=== PATIENT | male | born 1980 | race Caucasian/White ===

== ENCOUNTER → 2017-09-16 15:36 | Outpatient (REF) | payer OTHER, MEDICAID, SELFPAY | LOC: LAB 15:36 | PROVIDERS: Visit Provider Internal Medicine | DX: J15.211 Pneumonia due to Methicillin susceptible Staphylococcus aureus (principal); F15.93 Other stimulant use, unspecified with withdrawal; F95.2 Tourette's disorder | CPT/HCPCS: 87116 ==

== ENCOUNTER → 2023-09-16 13:51 | Outpatient (CLI) | payer OTHER, SELFPAY ==
--- NOTE | 2023-09-16 14:00 | DI.RAD.S_ITS ---
PROCEDURE: XR HIP W PEL IF DONE [place] MIN 4V INDICATIONS: ARTHRITIS EVAL TECHNIQUE: AP pelvis with lateral view(s) of the both hip(s). COMPARISON: None. FINDINGS: Bones: Mild bilateral hip arthrosis. Slight deformity at the pubic symphysis without diastasis. No acute displaced fracture or dislocation. Soft tissues: Pelvic calcifications likely phleboliths. IMPRESSION: Mild bilateral hip arthrosis. Age-indeterminate deformity of the pubic symphysis without diastasis. If there is high concern for further derangement, consider MRI evaluation. Dictated by: Francesco Kinney M.D. on 09/16/2023 at 16:57 Approved by: Francesco Kinney M.D. on 09/16/2023 at 16:59
--- NOTE | 2023-09-16 14:00 | DI.RAD.S_ITS ---
PROCEDURE: XR LUMBAR SPINE 2-3V INDICATIONS: ARTHRITIS EVAL TECHNIQUE: 3 views of the lumbar spine were acquired. COMPARISON: None. FINDINGS: Bones: 5 [id number] vertebrae are present. There is normal bony alignment. No vertebral body compression fractures. No suspicious bony lesions. Mild disc space narrowing and hypertrophic facet joints noted in the lower lumbar spine Soft tissues: Overlying bowel gas pattern is normal. No suspicious soft tissue calcifications. 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 on 09/16/2023 at 18:17
--- NOTE | 2023-09-16 14:00 | DI.RAD.S_ITS ---
PROCEDURE: XR THORACIC SPINE 2V INDICATIONS: ARTHRITIS EVAL TECHNIQUE: 3 views of the thoracic spine were acquired. COMPARISON: None. FINDINGS: Bones: No fractures or dislocations. No suspicious bony lesions. 12 pairs of ribs are noted, and appear intact where visualized. Soft tissues: No paravertebral stripe thickening. IMPRESSION: No acute bony abnormality. Approved by: Kanu Wesley M.D. on 09/16/2023 at 18:16
--- NOTE | 2023-09-16 14:00 | DI.RAD.S_ITS ---
PROCEDURE: XR KNEE LT 3V INDICATIONS: ARTHRITIS EVAL TECHNIQUE: 3 views of the knee were acquired. COMPARISON: None. FINDINGS: Bones: Possible postsurgical changes of ACL replacement. There are mild degenerative changes particularly in the medial compartment. No acute displaced fracture or dislocation. Soft tissues: A linear hyperdensity projects lateral to the distal femoral shaft. Patellar enthesopathy. Possible small intra-articular bone fragment. Possible small effusion IMPRESSION: Postsurgical changes. Mild osteoarthritis particularly in the medial compartment. Possible small intra-articular bone fragment. A possible linear metallic body is seen lateral to the distal femoral shaft. If there is high concern for further derangement, consider MRI evaluation. Dictated by: Francesco Kinney M.D. on 09/16/2023 at 16:59 Approved by: Francesco Kinney M.D. on 09/16/2023 at 17:00
--- NOTE | 2023-09-16 14:01 | DI.RAD.S_ITS ---
PROCEDURE: XR SHOULDER RT MIN 2V INDICATIONS: ARTHRITIS EVAL TECHNIQUE: 3 views of the shoulder were acquired. COMPARISON: [facility], , SHOULDER MINIMUM 2VIEW RIGHT, 06/24/2017, 12:18. FINDINGS: Bones: No fractures or dislocations. No suspicious bony lesions. Visualized ribs appear intact. Moderate joint space narrowing and inferior marginal osteophyte Soft tissues: No suspicious soft tissue calcifications. IMPRESSION: Moderate glenohumeral osteoarthritis Approved by: Kanu Wesley M.D. on 09/16/2023 at 18:16
--- NOTE | 2023-09-16 14:01 | DI.RAD.S_ITS ---
PROCEDURE: XR KNEE RT 3V INDICATIONS: ARTHRITIS EVAL TECHNIQUE: 3 views of the knee were acquired. COMPARISON: None. FINDINGS: Bones: [id number]-up-[id number] degenerative changes, particularly in the patellofemoral and medial compartments. This is worse than the contralateral side. Patellar enthesopathy. Sequelae of a ACL replacement. No acute displaced fracture or dislocation. Suspected intra-articular bone fragments are present. Soft tissues: Suspect small joint effusion and prepatellar soft tissue swelling. IMPRESSION: Kayr-yz-ccnekuio degenerative changes, worse than the contralateral side. Intra-articular bone fragments and possible small joint effusion. If there is high concern for further derangement, consider MRI evaluation. Dictated by: Francesco Kinney M.D. on 09/16/2023 at 17:00 Approved by: Francesco Kinney M.D. on 09/16/2023 at 17:01
--- NOTE | 2023-09-16 14:01 | DI.RAD.S_ITS ---
PROCEDURE: XR ELBOW RT 2V INDICATIONS: ARTHRITIS EVAL TECHNIQUE: 2 views of the elbow were acquired. COMPARISON: None. FINDINGS: Bones: Remote chip fracture of the olecranon. Soft tissues: No elbow joint effusion. No suspicious soft tissue calcifications. IMPRESSION: Remote chip fracture of the olecranon. Dictated by: Luis Salazar M.D. on 09/16/2023 at 15:52 Approved by: Luis Salazar M.D. on 09/16/2023 at 15:55
--- NOTE | 2023-09-16 14:01 | DI.RAD.S_ITS ---
PROCEDURE: XR HAND RT 2V INDICATIONS: ARTHRITIS EVAL TECHNIQUE: 3 views of the hand(s) acquired. COMPARISON: None. FINDINGS: Bones: No fractures or dislocations. Carpal bones are normally aligned. No suspicious bony lesions. Soft tissues: No suspicious soft tissue calcifications. IMPRESSION: No acute bony abnormality. No significant degenerative change. Dictated by: Luis Salazar M.D. on 09/16/2023 at 15:50 Approved by: Luis Salazar M.D. on 09/16/2023 at 15:51
--- NOTE | 2023-09-16 14:01 | DI.RAD.S_ITS ---
PROCEDURE: XR HAND LT 2V INDICATIONS: ARTHRITIS EVAL TECHNIQUE: To views of the hand(s) acquired. COMPARISON: None. FINDINGS: Bones: No fractures or dislocations. Carpal bones are normally aligned. No suspicious bony lesions. Soft tissues: No suspicious soft tissue calcifications. IMPRESSION: No significant degenerative change. Dictated by: Luis Salazar M.D. on 09/16/2023 at 15:52 Approved by: Luis Salazar M.D. on 09/16/2023 at 15:52
--- NOTE | 2023-09-16 14:01 | DI.RAD.S_ITS ---
PROCEDURE: XR CHEST 2V INDICATIONS: ARTHRITIS EVAL TECHNIQUE: 2 views of the chest were acquired. COMPARISON: [facility], , CHEST FOR PICC PLACEMENT, 06/24/2017, 22:50. FINDINGS: Surgical changes and devices: None. Lungs and pleura: Lungs are clear. No pleural effusions or pneumothorax. Mediastinum: Mediastinal contours are normal. Heart size is normal. Bones and chest wall: No suspicious bony abnormalities. Soft tissues appear unremarkable. IMPRESSION: No acute cardiopulmonary abnormality is seen. Approved by: Kanu Wesley M.D. on 09/16/2023 at 18:10
--- NOTE | 2023-09-16 14:01 | DI.RAD.S_ITS ---
PROCEDURE: XR ELBOW LT 2V INDICATIONS: ARTHRITIS EVAL TECHNIQUE: 2 views of the elbow were acquired. COMPARISON: None. FINDINGS: Bones: No fractures or dislocations. No suspicious bony lesions. Soft tissues: No elbow joint effusion. No suspicious soft tissue calcifications. IMPRESSION: No significant degenerative change. Dictated by: Luis Salazar M.D. on 09/16/2023 at 15:51 Approved by: Luis Salazar M.D. on 09/16/2023 at 15:51
--- NOTE | 2023-09-16 14:01 | DI.RAD.S_ITS ---
PROCEDURE: XR FOOT LT 2V INDICATIONS: ARTHRITIS EVAL TECHNIQUE: 2 views of the foot were acquired. COMPARISON: None. FINDINGS: Bones: Moderate to severe partially seen tibiotalar degenerative changes and grnc-tv-yurlergk midfoot degenerative changes. Mild 1st MTP degenerative changes with valgus alignment. Possible chronic appearing deformity of the 5th proximal and middle phalanx. Duplicated/bifid appearance of the 5th distal phalanx. These are likely nonacute. A possible exostosis is seen arising from the 4th metatarsal. Soft tissues: No suspicious calcifications. IMPRESSION: Partially seen advanced degenerative changes the ankle and [id number] degenerative changes at the 1st MTP and midfoot. Other nonacute findings as above at the 4th metatarsal and 5th ray. Dictated by: Francesco Kinney M.D. on 09/16/2023 at 17:08 Approved by: Francesco Kinney M.D. on 09/16/2023 at 17:11
--- NOTE | 2023-09-16 14:01 | DI.RAD.S_ITS ---
PROCEDURE: XR FOOT RT 2V INDICATIONS: ARTHRITIS EVAL TECHNIQUE: 3 views of the foot were acquired. COMPARISON: None. FINDINGS: Bones: Mild degenerative changes at the 1st MTP. No acute displaced fracture or dislocation. Moderate degenerative changes partially seen at the tibiotalar joint and mild midfoot degenerative changes also present. Soft tissues: No suspicious calcifications. IMPRESSION: Moderate degenerative changes at the ankle joint partially seen, and mild midfoot degenerative changes. Mild 1st MTP degenerative changes. If there is high concern for further derangement, consider MRI evaluation. Dictated by: Francesco Kinney M.D. on 09/16/2023 at 17:03 Approved by: Francesco Kinney M.D. on 09/16/2023 at 17:08
--- NOTE | 2023-09-16 14:01 | DI.RAD.S_ITS ---
PROCEDURE: XR SHOULDER LT MIN 2V INDICATIONS: ARTHRITIS EVAL TECHNIQUE: 3 views of the shoulder were acquired. COMPARISON: [facility], , SHOULDER MINIMUM 2VIEW RIGHT, 06/24/2017, 12:18. FINDINGS: Bones: No fractures or dislocations. No suspicious bony lesions. Visualized ribs appear intact. Glenohumeral moderate joint space narrowing and small inferior osteophyte Soft tissues: No suspicious soft tissue calcifications. IMPRESSION: [id number] glenohumeral osteoarthritis Approved by: Kanu Wesley M.D. on 09/16/2023 at 18:15
== END ==
PROVIDERS: Referring Provider Chiropractor; Visit Provider Chiropractor
DX: R05.9 Cough, unspecified (principal); M13.80 Other specified arthritis, unspecified site; J98.8 Other specified respiratory disorders; M19.012 Primary osteoarthritis, left shoulder; M19.011 Primary osteoarthritis, right shoulder; M84.431A Pathological fracture, right ulna, initial encounter for fracture
CPT/HCPCS: 71046; 72070; 72100; 73030; 73070; 73120; 73522; 73562; 73620; 94010